=== PATIENT | female | born 1985 | race Caucasian/White ===

== ENCOUNTER 2020-01-02 08:05 | Emergency (ER) | payer OTHER ==
[~2020-01-02] VITALS: Ht 162.6 cm; Wt 76.4 kg
[2020-01-02 08:05] VITALS: BP 124/58
[2020-01-02] MEDS ORDERED: IV NORMAL SALINE 1,000ML 1,000 ML IV ONE (08:30)
[2020-01-02] MEDS ORDERED: ONDANSETRON PF 4 MG/2 ML VIAL. IVP ONE (08:30)
[2020-01-02 08:45] LABS: BASO # 0.1 x10^3/uL (0.0-0.2); BASO % 1 % (0-3); EOS # 0.1 x10^3/uL (0.0-0.7); EOS % 2 % (0-3); HEMOGLOBIN 12.3 g/dL (12.0-15.5); LYMPH # 1.8 x10^3/uL (1.0-4.8); LYMPH % 25 % (24-48); MEAN CORPUSCULAR HEMOGLOBIN 27 pg (25-35); MEAN CORPUSCULAR HGB CONC 33 g/dL (31-37); MEAN CORPUSCULAR VOLUME 82 fL (79-100); MONO # 0.8 x10^3/uL (0.0-1.1); MONO % 11 % (0-9); NEUT # 4.6 x10^3uL (1.8-7.7); NEUT % 62 % (31-73); PLATELET COUNT 330 x10^3/uL (140-400); WHITE BLOOD COUNT 7.5 x10^3/uL (4.0-11.0)
[2020-01-02 08:54] LABS: ALBUMIN 3.9 g/dL (3.4-5.0); CALCIUM 8.8 mg/dL (8.5-10.1); CREATININE 1.6 mg/dL (0.6-1.0); GFR 37.4; TOTAL BILIRUBIN 0.3 mg/dL (0.2-1.0)
[2020-01-02 09:01] LABS: BACTERIA,URINE FEW /HPF (0-FEW); BILIRUBIN,URINE NEG (NEG); CLARITY,URINE CLOUDY; COLOR,URINE STRAW; GLUCOSE,URINE NEG (NEG); NITRITE,URINE NEG (NEG); RBC,URINE >40 /HPF (0-2); SQUAMOUS EPITHELIAL CELL,UR FEW /LPF; UROBILINOGEN,URINE 0.2 mg/dL (0.2 mg/dL); WBC,URINE >40 /HPF (0-4)
[2020-01-02 09:05] LABS: POTASSIUM 2.8 mmol/L (3.5-5.1)
[2020-01-02] MEDS ORDERED: IV NORMAL SALINE 50ML 50 ML ONE (09:27)
[2020-01-02] MEDS ORDERED: cefTRIAXone SODIUM 1 GM VIAL ONE (09:27)
[2020-01-02] MEDS ORDERED: POTASSIUM CHLORIDE 20 MEQ TABLET.ER. PO ONE ×2 (10:00→12:00)
--- NOTE | 2020-01-02 12:19 | RAD ---
RENAL SONOGRAPHY INDICATIONS: Elevated creatinine and BUN. COMPARISON: None available. FINDINGS: Longitudinal and AP and transverse dimensions of the right kidney are 10.7 cm and 4.7 cm and 5.1 cm respectively. There is an increase in medullary echogenicity with cortical thinning. Calcifications of the right kidney are seen which may represent stones. Patient has a history of medullary sponge kidney. No hydronephrosis is seen on the right side. There is a cyst of the lower pole of the right kidney measuring 2.6 cm. A thin septum is seen within it. This is consistent with Bosniak type II cyst and no further follow-up is needed. The longitudinal and AP and transverse dimensions of left kidney are 11.7 cm and 5.6 cm and 5.3 cm respectively. There is an increase in medullary echogenicity with cortical thinning. Left renal calcifications are seen. No hydronephrosis is seen on the left side. No renal mass is seen on the left side. No perinephric fluid collection is seen on either side. Urinary bladder is mildly distended. No urinary bladder intraluminal mass is seen. IMPRESSION: Increased echogenicity of the medullary spaces with cortical thinning. This may be seen with medullary sponge kidney. Bilateral renal calcifications are seen consistent with stones which may be seen with medullary sponge kidney. No hydronephrosis is seen on either side. Electronically signed by: Shaka Salas MD (01/02/2020 12:17 PM) [id number]
--- NOTE | 2020-01-02 12:29 | PHYS DOC ---
Past History Past Medical History: Kidney Stones Past Surgical History: Tonsillectomy Alcohol Use: None General Adult EDM: Chief Complaint: FLANK PAIN HPI: HPI: Patient is a 34-year-old female who presented to ER today for evaluation of left flank pain started last night. Patient had history of medullary sponge kidney and kidney stones. Patient had passed multiple kidney stone in the past, she was seen by her urologist at [facility] recently. Her last CT scan her abdomen pelvis was done about 3 weeks ago. Patient urinate blood in her urine this morning and she also noticed several small sand likes stones in her urine. Patient denies any fever, no nausea vomiting. Patient rated her pain a 10 out of 10 however she is in no obvious acute distress at this time. Review of Systems: Review of Systems: Constitutional: Denies fever or chills Eyes: Denies change in visual acuity HENT: Denies nasal congestion or sore throat Respiratory: Denies cough or shortness of breath Cardiovascular: Denies chest pain or edema GI: Positive abdominal pain, no nausea, vomiting, bloody stools or diarrhea : Denies dysuria, positive for hematuria Musculoskeletal: Denies back pain or joint pain Integument: Denies rash Neurologic: Denies headache, focal weakness or sensory changes Endocrine: Denies polyuria or polydipsia Lymphatic: Denies swollen glands Psychiatric: Denies depression or anxiety Heart Score: Risk Factors: Risk Factors: DM, Current or recent (<one month) smoker, HTN, HLP, family history of CAD, obesity. Risk Scores: Score 0 - 3: 2.5% MACE over next 6 weeks - Discharge Home Score 4 - 6: 20.3% MACE over next 6 weeks - Admit for Clinical Observation Score 7 - 10: 72.7% MACE over next 6 weeks - Early Invasive Strategies Current Medications: Current Meds: Current Medications Medications (Trade) Dose Ordered Sig/Adelfo Start Time Stop Time Status Last Admin Dose Admin Ceftriaxone Sodium 1 gm/ Sodium Chloride 50 ml @ 100 mls/hr 1X ONCE 01/02/20 09:15 01/02/20 09:44 DC 01/02/20 09:30 100 MLS/HR Ceftriaxone Sodium (Rocephin) 1 gm STK-MED ONCE 01/02/20 09:27 01/02/20 09:27 DC Fentanyl Citrate (Fentanyl 2ml Vial) 50 mcg 1X ONCE 01/02/20 08:30 01/02/20 08:32 DC 01/02/20 09:29 50 MCG Ondansetron HCl (Zofran) 4 mg 1X ONCE 01/02/20 08:30 01/02/20 08:32 DC 01/02/20 09:29 4 MG Potassium Chloride (Klor-Con) 40 meq 1X ONCE 01/02/20 12:00 01/02/20 12:08 DC 01/02/20 12:17 40 MEQ Sodium Chloride 50 ml @ As Directed STK-MED ONCE 01/02/20 09:27 01/02/20 09:27 DC Allergies: Allergies: Allergies Coded Allergies Type Severity Reaction Last Updated Verified ciprofloxacin Allergy Severe sob 01/02/20 Yes Physical Exam: PE: Constitutional: Well developed, well nourished, no acute distress, non-toxic appearance. HENT: Normocephalic, atraumatic, bilateral external ears normal, oropharynx moist, no oral exudates, nose normal. [] Eyes: PERRLA, EOMI, conjunctiva normal, no discharge. [] Neck: Normal range of motion, no tenderness, supple, no stridor. [] Cardiovascular:Heart rate regular rhythm, no murmur [] Lungs & Thorax: Bilateral breath sounds clear to auscultation [] Abdomen: Bowel sounds normal, soft, no tenderness, no masses, no pulsatile masses. [] Skin: Warm, dry, no erythema, no rash. [] Back: No tenderness, left CVA tenderness. [] Extremities: No tenderness, no cyanosis, no clubbing, ROM intact, no edema. [] Neurologic: Alert and oriented X 3, normal motor function, normal sensory function, no focal deficits noted. [] Psychologic: Affect normal, judgement normal, mood normal. [] Current Patient Data: Labs: Laboratory Tests Test 01/02/20 08:16 01/02/20 08:22 01/02/20 08:28 Urine Collection Type Unknown Urine Color Straw Urine Clarity Cloudy Urine pH 7.0 Urine Specific [place] 1.015 Urine Protein 30 mg/dl (NEG-TRACE) Urine Glucose (UA) Neg mg/dL (NEG) Urine Ketones (Stick) Neg mg/dL (NEG) Urine Blood Mod (NEG) Urine Nitrite Neg (NEG) Urine Bilirubin Neg (NEG) Urine Urobilinogen Dipstick 0.2 mg/dL (0.2 mg/dL) Urine Leukocyte Esterase Mod (NEG) Urine RBC >40 /HPF (0-2) Urine WBC >40 /HPF (0-4) Urine Squamous Epithelial Cells Few /LPF Urine Transitional Epithelial Cells Occ /LPF Urine Bacteria Few /HPF (0-FEW) White Blood Count 7.5 x10^3/uL (4.0-11.0) Red Blood Count 4.50 x10^6/uL (3.50-5.40) Hemoglobin 12.3 g/dL (12.0-15.5) Hematocrit 37.0 % (36.0-47.0) Mean Corpuscular Volume 82 fL (79-100) Mean Corpuscular Hemoglobin 27 pg (25-35) Mean Corpuscular Hemoglobin Concent 33 g/dL (31-37) Red Cell Distribution Width 19.0 % (11.5-14.5) H Platelet Count 330 x10^3/uL (140-400) Neutrophils (%) (Auto) 62 % (31-73) Lymphocytes (%) (Auto) 25 % (24-48) Monocytes (%) (Auto) 11 % (0-9) H Eosinophils (%) (Auto) 2 % (0-3) Basophils (%) (Auto) 1 % (0-3) Neutrophils # (Auto) 4.6 x10^3uL (1.8-7.7) Lymphocytes # (Auto) 1.8 x10^3/uL (1.0-4.8) Monocytes # (Auto) 0.8 x10^3/uL (0.0-1.1) Eosinophils # (Auto) 0.1 x10^3/uL (0.0-0.7) Basophils # (Auto) 0.1 x10^3/uL (0.0-0.2) Sodium Level 141 mmol/L (136-145) Potassium Level 2.8 mmol/L (3.5-5.1) *L Chloride Level 108 mmol/L (98-107) H Carbon Dioxide Level 18 mmol/L (21-32) L Anion Gap 15 (6-14) H Blood Urea Nitrogen 22 mg/dL (7-20) H Creatinine 1.6 mg/dL (0.6-1.0) H Estimated GFR (Cockcroft-Gault) 37.4 BUN/Creatinine Ratio 14 (6-20) Glucose Level 95 mg/dL (70-99) Calcium Level 8.8 mg/dL (8.5-10.1) Total Bilirubin 0.3 mg/dL (0.2-1.0) Aspartate Amino Transferase (AST) 19 U/L (15-37) Alanine Aminotransferase (ALT) 21 U/L (14-59) Alkaline Phosphatase 92 U/L (46-116) Total Protein 8.0 g/dL (6.4-8.2) Albumin 3.9 g/dL (3.4-5.0) Albumin/Globulin Ratio 1.0 (1.0-1.7) POC Urine HCG, Qualitative hcg negative (Negative) Vital Signs: Vital Signs Date Time Temp Pulse Resp B/P (MAP) Pulse Ox O2 Delivery O2 Flow Rate FiO2 01/02/20 08:05 97.7 104 20 124/58 (80) 97 Room Air EKG: EKG: [] Radiology/Procedures: Radiology/Procedures: [][place] [address] IMAGING REPORT Signed PATIENT: EILEEN SHIPMAN ACCOUNT: [id number] : 1985 LOCATION: ER AGE: 34 SEX: F EXAM STATUS: REG ER ORD. PHYSICIAN: SAGE HOLLINGSWORTH DO REASON: left flank pain, history of kidney stones and medullaryspongekidn PROCEDURE: RENAL COMPLETE BILATERAL RENAL SONOGRAPHY INDICATIONS: Elevated creatinine and BUN. COMPARISON: None available. FINDINGS: Longitudinal and AP and transverse dimensions of the right kidney are 10.7 cm and 4.7 cm and 5.1 cm respectively. There is an increase in medullary echogenicity with cortical thinning. Calcifications of the right kidney are seen which may represent stones. Patient has a history of medullary sponge kidney. No hydronephrosis is seen on the right side. There is a cyst of the lower pole of the right kidney measuring 2.6 cm. A thin septum is seen within it. This is consistent with Bosniak type II cyst and no further follow-up is needed. The longitudinal and AP and transverse dimensions of left kidney are 11.7 cm and 5.6 cm and 5.3 cm respectively. There is an increase in medullary echogenicity with cortical thinning. Left renal calcifications are seen. No hydronephrosis is seen on the left side. No renal mass is seen on the left side. No perinephric fluid collection is seen on either side. Urinary bladder is mildly distended. No urinary bladder intraluminal mass is seen. IMPRESSION: Increased echogenicity of the medullary spaces with cortical thinning. This may be seen with medullary sponge kidney. Bilateral renal calcifications are seen consistent with stones which may be seen with medullary sponge kidney. No hydronephrosis is seen on either side. Electronically signed by: Mina Salas MD (01/02/2020 12:17 PM) [id number] DICTATED AND SIGNED BY: MINA SALAS MD DATE: 01/02/20 1217 CC: HEIDE CALLAHAN; SAGE HOLLINGSWORTH DO ~ Course & Med Decision Making: Course & Med Decision Making Pertinent Labs and Imaging studies reviewed. (See chart for details) Patient is a 34-year-old female who was found to have acute neutral infection, low potassium level. Patient was given 80 mg equivalent of potassium in the ER, she was given 1 g Rocephin IV. Patient also had ultrasound done in the ER, showed no obstruction, show appearance consistent with medullary sponge kidneys . Patient urologist at [facility], she was instructed to call urologist on Saturday for follow-up. Patient was instructed to follow-up with her family doctor to have her potassium level rechecked next week. Flavia Disclaimer: Flavia Disclaimer: This electronic medical record was generated, in whole or in part, using a voice recognition dictation system. Departure Departure: Impression: Primary Impression: Flank pain Additional Impressions: UTI (urinary tract infection) Hypokalemia Kidney stones Disposition: HOME, SELF-CARE Condition: STABLE Referrals: HEIDE CALLAHAN (PCP) please follow up with your urologist next week Patient Instructions: Hypokalemia, Kidney Stones, Urinary Tract Infection Additional Instructions: Thank you for visiting our Emergency Department. We appreciate you trusting us with your care. If any additional problems come up don't hesitate to return to visit us. Please follow up with your primary care provider so they can plan additional care if needed and know about the problem that you had. If symptoms worsen come back to the Emergency Department. Any concerning symptoms that start such as chest pain, shortness of air, weakness or numbness on one side of the body, running high fevers or any other concerning symptoms return to the ER. Scripts Tramadol Hcl (TRAMADOL HCL) 50 Mg Tablet 50 MG PO PRN Q6HRS PRN for PAIN, #20 TAB Prov: SAGE HOLLINGSWORTH DO 01/02/20 Naproxen Sodium (ANAPROX DS) 550 Mg Tablet 1 TAB PO BID for FLANK PAIN for 15 Days, #30 TAB 0 Refills Prov: SAGE HOLLINGSWORTH DO 01/02/20 Sulfamethoxazole/Trimethoprim (BACTRIM DS TABLET) 1 Each Tablet 1 TAB PO BID for UTI for 10 Days, #20 TAB 0 Refills Prov: SAGE HOLLINGSWORTH DO 01/02/20 SAGE HOLLINGSWORTH DO January 02, 2020 12:29
[2020-01-02] MEDS ORDERED: NAPR-682 PO (12:43)
[2020-01-02] MEDS ORDERED: TRAM50TA PO (12:43)
[2020-01-02] MEDS ORDERED: SULF1TAB24 PO (12:43)
== END 2020-01-02 13:05 | disposition home or self-care (01) ==
LOC: ER 08:05
DX: N39.0 Urinary tract infection, site not specified (principal); E87.6 Hypokalemia; N20.0 Calculus of kidney; Z87.442 Personal history of urinary calculi; Z88.1 Allergy status to other antibiotic agents
CPT/HCPCS: 36415; 76770; 80053; 81001; 81025; 85025; 87086; 96365; 96375; 99284; J0696; J2405; J3010; J7030